=== PATIENT | female | born 1995 | race Caucasian/White ===

== ENCOUNTER → 2019-07-24 11:37 | Outpatient (BNVA) | payer OTHER, SELFPAY | PROVIDERS: Family Provider Nurse Practitioner Family; PCP Nurse Practitioner Family; Visit Provider Nurse Practitioner Family | DX: R53.83 Other fatigue (principal); R42 Dizziness and giddiness; E03.9 Hypothyroidism, unspecified; J32.9 Chronic sinusitis, unspecified | CPT/HCPCS: 80053; 81003; 82607; 83540; 83550; 84443; 85025; 86308 ==

== ENCOUNTER → 2019-07-31 11:00 | Outpatient (BNVA) | payer OTHER, SELFPAY | PROVIDERS: Family Provider Nurse Practitioner Family; PCP Nurse Practitioner Family; Visit Provider Nurse Practitioner Family | DX: E55.9 Vitamin D deficiency, unspecified (principal); D64.9 Anemia, unspecified; E53.8 Deficiency of other specified B group vitamins; Z79.899 Other long term (current) drug therapy | CPT/HCPCS: 82306; 83036 ==

== ENCOUNTER → 2019-10-08 11:18 | Outpatient (BNVA) | payer OTHER, SELFPAY | PROVIDERS: Family Provider Nurse Practitioner Family; PCP Nurse Practitioner Family; Visit Provider Nurse Practitioner Family | DX: E53.8 Deficiency of other specified B group vitamins (principal) | CPT/HCPCS: 82607 ==

== ENCOUNTER → 2019-11-26 11:41 | Outpatient (BNVA) | payer OTHER, SELFPAY | PROVIDERS: Family Provider Nurse Practitioner Family; PCP Nurse Practitioner Family; Visit Provider Nurse Practitioner Family | DX: K62.9 Disease of anus and rectum, unspecified (principal); N89.8 Other specified noninflammatory disorders of vagina | CPT/HCPCS: 81001; 84450; 87070; 87491; 87591; 87661 ==

== ENCOUNTER → 2019-12-06 11:19 | Outpatient (BNVA) | payer OTHER, SELFPAY | PROVIDERS: Family Provider Nurse Practitioner Family; PCP Nurse Practitioner Family; Visit Provider Nurse Practitioner Family | DX: Z20.2 Contact with and (suspected) exposure to infections with a predominantly sexual mode of transmission (principal) | CPT/HCPCS: 84450; 87070; 87077; 87186; 88175 ==

== ENCOUNTER → 2019-12-10 16:39 | Outpatient (BNVA) | payer OTHER, SELFPAY | PROVIDERS: Family Provider Nurse Practitioner Family; PCP Nurse Practitioner Family; Visit Provider Nurse Practitioner Family | DX: Z11.59 Encounter for screening for other viral diseases (principal) | CPT/HCPCS: 87635 ==

== ENCOUNTER → 2020-01-06 15:18 | Outpatient (BNVA) | payer OTHER, SELFPAY | PROVIDERS: Family Provider Nurse Practitioner Family; PCP Nurse Practitioner Family; Visit Provider Nurse Practitioner Family | DX: N39.0 Urinary tract infection, site not specified (principal) | CPT/HCPCS: 81000; 81003 ==

== ENCOUNTER → 2020-01-08 11:43 | Outpatient (BNVA) | payer OTHER, SELFPAY | PROVIDERS: Family Provider Nurse Practitioner Family; PCP Nurse Practitioner Family; Visit Provider Nurse Practitioner Family | DX: R68.89 Other general symptoms and signs (principal) | CPT/HCPCS: 87635 ==

== ENCOUNTER → 2020-01-16 14:44 | Outpatient (BNVA) | payer OTHER, SELFPAY | PROVIDERS: Family Provider Nurse Practitioner Family; PCP Nurse Practitioner Family; Visit Provider Nurse Practitioner Family | DX: Z20.2 Contact with and (suspected) exposure to infections with a predominantly sexual mode of transmission (principal) | CPT/HCPCS: 81025; 86592; 87491; 87591 ==

== ENCOUNTER → 2021-01-18 07:44 | Outpatient (BNVA) | payer BC, SELFPAY | PROVIDERS: Family Provider Nurse Practitioner Family; PCP Nurse Practitioner Family; Visit Provider Nurse Practitioner Family | DX: N89.8 Other specified noninflammatory disorders of vagina (principal); L60.0 Ingrowing nail; B37.3 Candidiasis of vulva and vagina | CPT/HCPCS: 87070; 87106; 87107; 87205 ==

== ENCOUNTER 2021-10-11 13:03 | Outpatient (CLI) | payer OTHER, SELFPAY ==
--- NOTE | 2021-10-11 13:17 | XRR_ITS ---
PROCEDURE INFORMATION: Exam: XR Abdomen Exam date and time: 10/11/2021 1:17 PM Age: 26 years old Clinical indication: Bloating; Abdominal pain; Localized; Lower; Prior surgery; Additional info: Lower abd pain TECHNIQUE: Imaging protocol: XR of the abdomen. Views: Frontal supine view of the abdomen. 1 View. COMPARISON: No relevant prior studies available. FINDINGS: Gastrointestinal tract: Normal. No bowel dilation. Bones/joints: Unremarkable. XR/XR abdomen 1V* [id number] IMPRESSION: No acute findings.
== END 2021-10-11 13:04 | disposition home or self-care (01) ==
PROVIDERS: Family Provider Nurse Practitioner Family; PCP Registered Nurse; Visit Provider Registered Nurse
DX: R10.30 Lower abdominal pain, unspecified (principal); R14.0 Abdominal distension (gaseous); R11.0 Nausea; R80.9 Proteinuria, unspecified
CPT/HCPCS: 74018

== ENCOUNTER 2021-11-06 16:36 | Emergency (ER) | payer OTHER, SELFPAY ==
[2021-11-06 16:51] VITALS: BP 166/122; PULSE 95; RESP 13; TEMP 37.1; O2SAT 97; BMI 50.1
--- NOTE | 2021-11-06 18:22 | XRR_ITS ---
PROCEDURE INFORMATION: Exam: XR Chest Exam date and time: 11/06/2021 6:29 PM Age: 26 years old Clinical indication: Other: Dizzy TECHNIQUE: Imaging protocol: XR of the chest. Views: 1 view. COMPARISON: CR XR abdomen 1V* [id number] 10/11/2021 1:17 PM FINDINGS: Lungs: Unremarkable. No consolidation. Pleural spaces: Unremarkable. No pleural effusion. No pneumothorax. Heart/Mediastinum: Unremarkable. No cardiomegaly. Bones/joints: Unremarkable. XR/XR chest 1V portable [id number] IMPRESSION: No acute findings.
--- NOTE | 2021-11-06 18:23 | ECG_ITS ---
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 Measurements Intervals [place] Rate: 91 P: 30 MT: 178 QRS: 68 QRSD: 86 T: 46 QT: 349 QTc: 430 Interpretive Statements SINUS RHYTHM No previous ECG available for comparison Electronically Signed On 11-07-2021 20:30:34 CDT by Jonatan Cota M.D. [email or web address]
--- NOTE | 2021-11-06 18:42 | W.ED.DIZZY ---
HPI - Dizziness General: Chief Complaint: Dizziness Stated Complaint: High Blood Pressure\Dizzy\Left Arm Tingeling Time Seen by Provider: 11/06/21 18:13 Source: patient History of Present Illness: HPI Narrative: 26-year-old female presenting with 4 days of dizziness. She takes lisinopril for hypertension. And has been taking it regularly. She does note that her blood pressures been high. She has had episodes of dizziness. She has had a dull headache at times. She had some mild vision changes. Today, she felt tingling in her left arm, which is also new. She denies any overt chest pain, but did note some discomfort in her epigastrium. No fever. She was at work today, when she felt this, and asked to have her blood pressure taken, and it was quite high. MD elicited complaint: dizziness Onset (ago): day(s) Timing: gradual onset Severity: moderate Description: sense of movement, lightheadedness and near-syncope Context: other History of similar symptoms: No Exacerbating factors: movement/ambulation Relieving factors: nothing Associated symptoms: Reports headache(s) and nausea; Denies change in hearing, chest pain, fevers/chills, short of breath or vomiting Associated neuro symptoms: Reports numbness in extremities; Deny confusion, difficulty speaking, diplopia, extremity weakness, facial numbness or facial weakness Review of Systems Const: Denies: fever(s) Eyes: Reports: change in vision; Denies: blurry vision ENMT: Denies: throat pain or change in hearing Card: Denies: chest pain Resp: Denies: dyspnea GI: Reports: abdominal pain (Mild epigastric) and nausea; Denies: vomiting Neuro: Reports: headache(s) and numbness in extremities; Denies: confusion PFS ED PFSH: Medical History Anemia Anxiety and depression Patient has history of anxiety and depression. She has failed several medications but recently placed on Paxil and is reported to be doing better. Bacterial vaginosis Encounter for control pills maintenance External hemorrhoid HPV exposure Ingrown toenail Shoulder strain Urinary tract infection Vaginal candidiasis Vaginal Discharge Vaginal infection Vitamin B 12 deficiency Vitamin D deficiency Yeast vaginitis Social History Smoking and tobacco status: never smoked Second hand smoke exposure: No Alcohol intake: never Desire information about alcohol rehabilitation?: No Counseling given: No Desire information about substance/drug rehabilitation?: No Counseling given: No Physical Exam Const: COMMON NORMALS: alert GENERAL APPEARANCE: cooperative; not frail appearing HENMT: COMMON NORMALS: normocephalic, atraumatic and Normal external nose present HEAD & SCALP: normocephalic and atraumatic FACE & SINUS: normal facial exam and face symmetric NOSE: Normal external nose present Eye: COMMON NORMALS: Equal, round and reactive pupils present and EOMs intact bilaterally PUPIL: Yes Equal, round and reactive pupils present Neck/C-Spine: COMMON NORMALS: full ROM GENERAL: Yes trachea midline Chest: CHEST: Yes Symmetrical chest wall rise Resp: COMMON NORMALS: normal respiratory effort, No use of accessory muscles and clear to auscultation bilaterally AUSCULTATION: clear to auscultation bilaterally Cardio: COMMON NORMALS: regular rate and regular rhythm RATE: regular rate RHYTHM: regular rhythm GI: COMMON NORMALS: Normal to inspection, nondistended, normoactive bowel sounds present Extremity: COMMON NORMALS: no pedal edema Neuro: TREV COMA SCALE: document GCS findings Range coma scale eye opening: Spontaneous Trev coma scale verbal response: Orientated Range coma scale motor response: Obey commands Range coma scale total score: 15 SENSORIUM/ORIENTATION: Yes alert CRANIAL NERVES: Yes CN normal except as noted COORDINATION/BALANCE: aspfei-hh-gioy test normal and duey-fi-qhzn test normal MOTOR EXAM: Pronator motor function not present and no tremor noted COORDINATION: vjetyb-xh-zoep test normal and bxms-ht-[id number] test normal Course Vital Signs: Vital signs: Vital Signs Temperature 98.8 F 11/06/21 16:51 Pulse Rate 92 11/06/21 19:50 Respiratory Rate 18 11/06/21 19:50 Blood Pressure 129/82 11/06/21 20:11 Pulse Oximetry 97 11/06/21 19:50 MDM - Dizziness Medical Decision Making Symptoms are resolved after 10 mg IV labetalol, Ativan, and 10 mg of oral amlodipine. Blood pressure currently is 136/71. Labs are normal. Head CT is normal. Chest x-ray was nonacute. No significant ST changes on EKG. She will be allowed home. We will have her check her pressures, and increase her lisinopril accordingly if her blood pressure stays high Lab Data : 11/06/21 19:10 11/06/21 19:10 Radiology Impressions Chest X-Ray 11/06/21 18:22 IMPRESSION: No acute findings. Head CT 11/06/21 18:47 IMPRESSION: No acute intracranial abnormality. Laboratory Results WBC 10.3 10^3/uL (4.0-10.0) H 11/06/21 19:10 RBC 4.57 10^6/uL (4.1-5.3) 11/06/21 19:10 Hgb 13.8 g/dL (11.5-15.3) 11/06/21 19:10 Hct 42.2 % (37.0-47.0) 11/06/21 19:10 MCV 92.3 fl (81-99) 11/06/21 19:10 MCH 30.2 pg (28.0-34.0) 11/06/21 19:10 MCHC 32.7 g/dL (30.0-36.0) 11/06/21 19:10 RDW 13.2 % (12.1-15.1) 11/06/21 19:10 Plt Count 340 10^3/cmm (130-400) 11/06/21 19:10 MPV 10.1 fL (7.4-10.4) 11/06/21 19:10 Neut % (Auto) 60.5 % 11/06/21 19:10 Lymph % (Auto) 29.0 % 11/06/21 19:10 [place] % (Auto) 8.9 % 11/06/21 19:10 Eos % (Auto) 0.9 % 11/06/21 19:10 Baso % (Auto) 0.4 % 11/06/21 19:10 Neut # (Auto) 6.24 10^3/uL (1.8-7.7) 11/06/21 19:10 Lymph # (Auto) 3.0 10^3/uL (0.8-4.8) 11/06/21 19:10 [place] # (Auto) 0.9 10^3/uL (0.2-0.9) 11/06/21 19:10 Eos # (Auto) 0.1 10^3/uL (0.0-0.8) 11/06/21 19:10 Baso # (Auto) 0.0 10^3/uL (0.0-0.1) 11/06/21 19:10 Nucleated RBC % (auto) 0 % 11/06/21 19:10 Nucleated RBCs # 0.0 /100WBC 11/06/21 19:10 Sodium 136 mmol/L (136-145) 11/06/21 19:10 Potassium 4.3 mmol/L (3.5-5.1) 11/06/21 19:10 Chloride 102 mmol/L (98-107) 11/06/21 19:10 Carbon Dioxide 24 mmol/L (22-29) 11/06/21 19:10 Anion Gap 14.3 (5-19) 11/06/21 19:10 BUN 10 mg/dL (6-20) 11/06/21 19:10 Creatinine 0.5 mg/dL (0.5-0.9) 11/06/21 19:10 GFR Calculation 151.6 mL/min (90-130) H 11/06/21 19:10 Glucose 90 mg/dL (65-115) 11/06/21 19:10 Calculated Osmolality 281 mOsm/kg (285-295) L 11/06/21 19:10 Calcium 9.7 mg/dL (8.5-10.5) 11/06/21 19:10 Total Bilirubin 0.3 mg/dL (0.15-1.2) 11/06/21 19:10 AST 12 U/L (0-32) 11/06/21 19:10 ALT 11 U/L (0-33) 11/06/21 19:10 Alkaline Phosphatase 92 IU/L (35-105) 11/06/21 19:10 Troponin T Gen 5 ng/L 6 ng/L (0-10) 11/06/21 19:10 NT-Pro-B Natriuret Pep 5 pg/mL (0-125) 11/06/21 19:10 Total Protein 7.1 g/dL (6.6-8.7) 11/06/21 19:10 Albumin 4.2 g/dL (3.5-5.2) 11/06/21 19:10 Globulin 2.9 g/dL (1.3-4.6) 11/06/21 19:10 HCG, Qual Negative (Negative) 11/06/21 19:45 Urine Color Yellow (Yellow) 11/06/21 19:50 Urine Appearance Clear (CLEAR) 11/06/21 19:50 Urine pH 6 (5-7) 11/06/21 19:50 Ur Specific [place] 1.015 (1.005-1.030) 11/06/21 19:50 Urine Protein Neg (Negative) 11/06/21 19:50 Urine Glucose (UA) Norm (Normal) 11/06/21 19:50 Urine Ketones Negative (Negative) 11/06/21 19:50 Urine Blood Neg (Negative) 11/06/21 19:50 Urine Nitrate Negative (Negative) 11/06/21 19:50 Urine Bilirubin Neg (Negative) 11/06/21 19:50 Urine Urobilinogen Norm mg/dL (Negative) 11/06/21 19:50 Ur Leukocyte Esterase Negative (Negative) 11/06/21 19:50 Discharge Plan Discharge Patient Disposition: Home Clinical Impression: Hypertension Condition: Stable Prescriptions: New lisinopril 20 mg tablet 20 mg PO DAILY Qty: 30 0RF No Action ibuprofen 800 mg tablet 800 mg PO Q8H PRN (Reason: headache) 30 Days Qty: 90 1RF lidocaine HCl [Xylocaine] 10 mg/mL (1 %) solution 1 ml IM ONCE Qty: 1 0RF paroxetine HCl 20 mg tablet 40 mg .ROUTE .COMPLEX 0RF Rx Instructions: 40 mg; metformin 500 mg tablet extended release 24hr 1,000 mg PO BID 0RF fluticasone propionate 50 mcg/actuation spray,suspension 1 spray intranasal DAILY 0RF Rx Instructions: administer into each nostril imiquimod 2.5 % cream in metered-dose pump 1 pump topical DAILY 0RF pantoprazole 40 mg tablet,delayed release (DR/EC) 40 mg PO DAILY 0RF sulfamethoxazole-trimethoprim [Bactrim DS] 800-160 mg tablet 1 tab PO BID 7 Days Qty: 14 0RF norgestimate-ethinyl estradiol [Sprintec (28)] 0.25-35 mg-mcg tablet See Rx Instructions .ROUTE .COMPLEX Qty: 28 0RF Dose Instruction: Take 1 tablet by mouth once daily for 30 days Rx Instructions: Take 1 tablet by mouth once daily for 30 days fluconazole [Diflucan] 150 mg tablet 150 mg PO DAILY 5 Days Qty: 5 0RF paroxetine HCl 10 mg tablet See Rx Instructions .ROUTE .COMPLEX Qty: 30 2RF Dose Instruction: TAKE 1 TABLET BY MOUTH ONCE DAILY WITH 40MG FOR 50MG DAILY DOSING. Rx Instructions: TAKE 1 TABLET BY MOUTH ONCE DAILY WITH 40MG FOR 50MG DAILY DOSING. levothyroxine [Euthyrox] 25 mcg tablet See Rx Instructions .ROUTE .COMPLEX Qty: 30 0RF Dose Instruction: Take 1 tablet by mouth once daily Rx Instructions: Take 1 tablet by mouth once daily Pt needs appointment before additional refills are given. Discharge Orders: Discharge ED (Routine); Ordered 11/06/21 Ordered By: Misbah Vigil Referrals: Kristi Shore [Primary Care Provider] - 4-7 days Discharge Diet: Advance as tolerated Discharge Activity: Increase activity as tolerated Patient Instructions: Hypertension (ED) Activity Restrictions/Additional Instructions: Check your blood pressures twice daily. If your systolic (the top number) stays above 150, take 2 of your 10 mg lisinopril pills daily instead of 1. If you are having to do this consistently, you may fill the 20 mg lisinopril prescription and increase her dosage consistently. Return for worsening headache, vision, mental status, weakness, or any chest discomfort. Coding Level of Care Code ED Oncology Radiation Physician for Vicente Fwjose antonio Exam Comprehensive
--- NOTE | 2021-11-06 18:47 | CTR_ITS ---
PROCEDURE INFORMATION: Exam: CT Head Without Contrast Exam date and time: 11/06/2021 6:59 PM Age: 26 years old Clinical indication: Dizziness; Patient HX: High blood pressure TECHNIQUE: Imaging protocol: Computed tomography of the head without contrast. Radiation optimization: All CT scans at this facility use at least one of these dose optimization techniques: automated exposure control; mA and/or kV adjustment per patient size (includes targeted exams where dose is matched to clinical indication); or iterative reconstruction. COMPARISON: No relevant prior studies available. RADIATION DOSE METRICS: Total DLP (mGy-cm): 820.06 FINDINGS: Brain: Normal. No hemorrhage. Unremarkable white matter. No mass effect. Cerebral ventricles: No ventriculomegaly. Paranasal sinuses: Visualized sinuses are unremarkable. No fluid levels. Mastoid air cells: Visualized mastoid air cells are well aerated. Bones/joints: Unremarkable. No acute fracture. Soft tissues: Unremarkable. CT/CT head wo con* [id number] IMPRESSION: No acute intracranial abnormality.
[2021-11-06 19:00] VITALS: BP 161/120; PULSE 99; RESP 18; O2SAT 98
[2021-11-06] MEDS: amlodipine 10 mg Tablet PO (19:15)
[2021-11-06] MEDS: LORazepam 2 mg/mL INJ 1 mL 1 MG IVP (19:16)
[2021-11-06 19:17] LABS: Basophils % 0.4 %; Eosinophils # 0.1 10^3/uL (0.0-0.8); Eosinophils % 0.9 %; Hematocrit 42.2 % (37.0-47.0); Hemoglobin 13.8 g/dL (11.5-15.3); Mean Corpuscular HGB Conc 32.7 g/dL (30.0-36.0); Mean Corpuscular Hemoglobin 30.2 pg (28.0-34.0); Mean Corpuscular Volume 92.3 fl (81-99); Mean Platelet Volume 10.1 fL (7.4-10.4); Monocytes # 0.9 10^3/uL (0.2-0.9); Monocytes % 8.9 %; Neutrophils # 6.24 10^3/uL (1.8-7.7); Neutrophils % 60.5 %; Nucleated Red Blood Cells % 0 %; Platelet Count 340 10^3/cmm (130-400); Red Blood Count 4.57 10^6/uL (4.1-5.3); Red Cell Distribution Width 13.2 % (12.1-15.1); White Blood Count 10.3 10^3/uL (4.0-10.0)
[2021-11-06] MEDS: labetalol 5 mg/mL SDV 20mL 10 MG IVP (19:18)
[2021-11-06 19:35] LABS: Troponin T (5th) Once 6 ng/L (0-10)
[2021-11-06 19:43] LABS: Alanine Aminotransferase 11 U/L (0-33); Albumin Level 4.2 g/dL (3.5-5.2); Alkaline Phosphatase 92 IU/L (35-105); Anion Gap 14.3 (5-19); Aspartate Amino Transferase 12 U/L (0-32); Blood Urea Nitrogen 10 mg/dL (6-20); Calcium 9.7 mg/dL (8.5-10.5); Carbon Dioxide 24 mmol/L (22-29); Chloride 102 mmol/L (98-107); Globulin 2.9 g/dL (1.3-4.6); Glomerular Filtration Rate 151.6 mL/min (90-130); Glucose 90 mg/dL (65-115); NT Pro B Type Natriuretic Pept 5 pg/mL (0-125); Osmolality Calculated 281 mOsm/kg (285-295); Potassium 4.3 mmol/L (3.5-5.1); Sodium 136 mmol/L (136-145); Total Bilirubin 0.3 mg/dL (0.15-1.2); Total Protein 7.1 g/dL (6.6-8.7)
[2021-11-06 19:50] VITALS: BP 161/83; PULSE 92; RESP 18; O2SAT 97
[2021-11-06 19:56] LABS: Add Urine Microscopic? NO; Charge for UA Resulting for Rev
[2021-11-06 20:02] LABS: Bilirubin Urine Neg (Negative); Blood Urine Neg (Negative); Glucose Urine UA Norm (Normal); Ketones Urine Negative (Negative); Leukocyte Esterase Urine Negative (Negative); Nitrate Urine Negative (Negative); Protein Urine Neg (Negative); Specific Gravity, Urine 1.015 (1.005-1.030); Urine Appearance Clear (CLEAR); Urine Color Yellow (Yellow); Urobilinogen Urine Norm (Negative); pH Urine 6 (5-7)
[2021-11-06 20:05] LABS: HCG, Serum Qual Negative (Negative)
[2021-11-06 20:11] VITALS: BP 129/82
[2021-11-06 21:12] VITALS: BP 120/92; PULSE 96; RESP 18; O2SAT 98
== END 2021-11-06 20:37 | disposition home or self-care (01) ==
PROVIDERS: Emergency Provider Emergency Medicine; PCP Registered Nurse
DX: I10 Essential (primary) hypertension (principal); R42 Dizziness and giddiness; R51.9 Headache, unspecified
CPT/HCPCS: 70450; 71045; 80053; 81003; 83880; 84484; 84703; 85025; 93005; 96374; 96375; 99284; J2060; J3490

== ENCOUNTER 2021-12-24 15:06 | Outpatient (CLI) | payer OTHER, SELFPAY ==
[2021-12-24 16:22] LABS: 25 Hydroxy Vitamin D 37 ng/mL (30-100); Vitamin B12 250 pg/mL (232-1245)
== END 2021-12-24 15:07 | disposition home or self-care (01) ==
LOC: LAB 15:15
PROVIDERS: PCP Registered Nurse; Visit Provider Nurse Practitioner Family
DX: R53.83 Other fatigue (principal); E55.9 Vitamin D deficiency, unspecified
CPT/HCPCS: 36415; 82306; 82607

== ENCOUNTER → 2022-01-05 14:50 | Outpatient (BNVA) | payer OTHER, SELFPAY | PROVIDERS: PCP Registered Nurse; Visit Provider Nurse Practitioner Family | DX: R31.9 Hematuria, unspecified (principal) | CPT/HCPCS: 81003 ==

== ENCOUNTER → 2022-01-13 10:29 | Outpatient (BNVA) | payer OTHER, SELFPAY | PROVIDERS: PCP Registered Nurse; Visit Provider Nurse Practitioner Family | DX: R30.0 Dysuria (principal) | CPT/HCPCS: 81003; 87086 ==

== ENCOUNTER 2022-01-25 13:00 | Outpatient (CLI) | payer OTHER, SELFPAY | END 2022-01-25 13:01 | disposition home or self-care (01) | LOC: SLEEP 01-27 08:00 | PROVIDERS: PCP Registered Nurse; Visit Provider Internal Medicine Critical Care Medicine | DX: G47.10 Hypersomnia, unspecified (principal) | CPT/HCPCS: G0399 ==

== ENCOUNTER 2022-03-22 11:23 | Outpatient (CLI) | payer OTHER, SELFPAY ==
[2022-03-22 13:05] LABS: 25 Hydroxy Vitamin D 32 ng/mL (30-100); Alanine Aminotransferase 11 U/L (0-33); Albumin Level 3.6 g/dL (3.5-5.2); Alkaline Phosphatase 85 U/L (35-105); Aspartate Amino Transferase 15 U/L (0-32); Blood Urea Nitrogen 10 mg/dL (6-20); C Reactive Protein 25.3 mg/L (0.0-4.9); Calcium 9.3 mg/dL (8.5-10.5); Carbon Dioxide 24 mmol/L (22-29); Chloride 104 mmol/L (98-107); Chol HDL Ratio 5.09 mg/dL (0.0-4.40); Cholesterol 219 mg/dL (0-200); Globulin 2.9 g/dL (1.3-4.6); Glomerular Filtration Rate 151.6 mL/min (90-130); Glucose 90 mg/dL (65-115); HDL Cholesterol 43 mg/dL (60-100); LDL Cholesterol Calculated 147 mg/dL (50-129); LDL HDL Ratio 3.42 RATIO (0.00-3.22); Osmolality Calculated 287 mOsm/kg (285-295); Sodium 139 mmol/L (136-145); Thyroid Stimulating Hormone 1.58 uIU/mL (0.27-4.20); Total Bilirubin 0.2 mg/dL (0.15-1.2); Total Protein 6.5 g/dL (6.6-8.7); Triglycerides 147 mg/dL (0-150)
[2022-03-22 13:08] LABS: Basophils % 0.4 %; Eosinophils # 0.1 10^3/uL (0.0-0.8); Eosinophils % 0.9 %; Hematocrit 39.2 % (37.0-47.0); Hemoglobin 12.8 g/dL (11.5-15.3); Lymphocytes # 2.3 10^3/uL (0.8-4.8); Lymphocytes % 29.2 %; Mean Corpuscular HGB Conc 32.7 g/dL (30.0-36.0); Mean Corpuscular Hemoglobin 30.3 pg (28.0-34.0); Mean Corpuscular Volume 92.7 fl (81-99); Mean Platelet Volume 10.4 fL (7.4-10.4); Monocytes # 0.5 10^3/uL (0.2-0.9); Monocytes % 6.3 %; Neutrophils # 4.92 10^3/uL (1.8-7.7); Neutrophils % 62.8 %; Nucleated Red Blood Cells % 0 %; Platelet Count 306 10^3/cmm (130-400); Red Blood Count 4.23 10^6/uL (4.1-5.3); Red Cell Distribution Width 12.5 % (12.1-15.1); White Blood Count 7.8 10^3/uL (4.0-10.0)
[2022-03-22 13:13] LABS: Anion Gap 15.1 (5-19); Potassium 4.1 mmol/L (3.5-5.1)
--- NOTE | 2022-03-22 14:14 | XRR_ITS ---
PROCEDURE INFORMATION: Exam: XR Right Hip Exam date and time: 03/22/2022 2:14 PM Age: 26 years old Clinical indication: Hip pain; Right hip; Additional info: Right hip pain TECHNIQUE: Imaging protocol: Radiologic exam of the Right hip. Views: 1 view hip with pelvis when performed. COMPARISON: CR XR abdomen 1V* [id number] 10/11/2021 1:17 PM FINDINGS: Bones/joints: The visualized pelvis is grossly intact. The hip joint maintains normal alignment. No proximal femoral fracture identified. Soft tissues: Unremarkable. XR/XR hip RT 2-3V wo/w pel* [id number] IMPRESSION: No fracture identified.
[2022-03-22 14:38] LABS: Estmated Average Glucose 94; Hemoglobin A1C 4.9 % (4.0-6.0)
[2022-03-22 16:42] LABS: Free T4 Free Thyroxine 0.93 ng/dL (0.82-1.77)
[2022-03-23 15:08] LABS: Thyroglobulin AB <1 IU/mL (< or = 1)
[2022-03-29 12:13] LABS: T3 Total 179 ng/dL (76-181)
[2022-03-31 14:27] LABS: Thyroglobulin Level 8.7 ng/mL
== END 2022-03-22 11:24 | disposition home or self-care (01) ==
PROVIDERS: PCP Registered Nurse; Visit Provider Registered Nurse
DX: M25.551 Pain in right hip (principal); E11.9 Type 2 diabetes mellitus without complications; I10 Essential (primary) hypertension; M79.10 Myalgia, unspecified site; E03.4 Atrophy of thyroid (acquired); E55.9 Vitamin D deficiency, unspecified
CPT/HCPCS: 36415; 73502; 80053; 80061; 82306; 83036; 84432; 84439; 84443; 84480; 85025; 86140; 86431; 86800

== ENCOUNTER 2022-06-02 08:25 | Outpatient (CLI) | payer OTHER, SELFPAY ==
[2022-06-02 09:17] LABS: Total Volume Urine 2056 ml
[2022-06-02 09:24] LABS: Urine Creatinine 122 mg/dL (28-217)
[2022-06-09 15:14] LABS: Free Cortisol Urine 19.1 mcg/24 h (4.0-50.0); Total Urine 1225 mL; Urine Creatinine 1.35 g/24 h (0.50-2.15)
== END 2022-06-02 08:26 | disposition home or self-care (01) ==
LOC: LAB 08:29
PROVIDERS: PCP Nurse Practitioner Family; Visit Provider Internal Medicine
DX: E03.9 Hypothyroidism, unspecified (principal); R63.5 Abnormal weight gain
CPT/HCPCS: 82530; 82570

== ENCOUNTER → 2022-07-18 11:20 | Outpatient (BNVA) | payer OTHER, SELFPAY | PROVIDERS: PCP Family Medicine; Visit Provider Internal Medicine | DX: Z20.2 Contact with and (suspected) exposure to infections with a predominantly sexual mode of transmission (principal); F32.A Depression, unspecified; E55.9 Vitamin D deficiency, unspecified; D64.9 Anemia, unspecified; L40.9 Psoriasis, unspecified; S46.911A Strain of unspecified muscle, fascia and tendon at shoulder and upper arm level, right arm, initial encounter; X58.XXXA Exposure to other specified factors, initial encounter | CPT/HCPCS: 36415; 72202; 73120; 80053; 81003; 82306; 82550; 82607; 82728; 83540; 85025; 85651; 86140; 86160; 86162; 86200; 86235; 86255; 86376; 86704; 86803; 87340 ==

== ENCOUNTER → 2022-07-26 08:04 | Outpatient (BNVA) | payer OTHER, SELFPAY | PROVIDERS: PCP Family Medicine; Visit Provider Podiatrist Foot & Ankle Surgery | DX: M72.2 Plantar fascial fibromatosis (principal) | CPT/HCPCS: 73630 ==

== ENCOUNTER 2022-07-26 08:35 | Outpatient (CLI) | payer OTHER, SELFPAY ==
[2022-07-26 10:18] LABS: Anion Gap 16.3 (5-19); Blood Urea Nitrogen 11 mg/dL (6-20); Calcium 8.9 mg/dL (8.5-10.5); Carbon Dioxide 21 mmol/L (22-29); Chloride 103 mmol/L (98-107); Free T4 Free Thyroxine 1.05 ng/dL (0.82-1.77); Glomerular Filtration Rate 151.6 mL/min (90-130); Glucose 94 mg/dL (65-115); Osmolality Calculated 281 mOsm/kg (285-295); Potassium 4.3 mmol/L (3.5-5.1); Sodium 136 mmol/L (136-145); Thyroid Stimulating Hormone 2.25 uIU/mL (0.27-4.20)
[2022-07-26 11:24] LABS: Estmated Average Glucose 91; Hemoglobin A1C 4.8 % (4.0-6.0)
[2022-07-27 11:34] LABS: Insulin ( Reference Lab Test) 17.5 uIU/mL
[2022-08-01 15:54] LABS: Thyroid Peroxidase Antobodies 1 IU/mL (<9)
== END 2022-07-26 08:36 | disposition home or self-care (01) ==
LOC: LAB 08:39
PROVIDERS: PCP Family Medicine; Visit Provider Internal Medicine
DX: E03.9 Hypothyroidism, unspecified (principal); R63.5 Abnormal weight gain; E88.81 Metabolic syndrome and other insulin resistance
CPT/HCPCS: 36415; 80048; 83036; 83525; 84439; 84443; 86376

== ENCOUNTER → 2023-02-14 18:52 | Outpatient (BNVA) | payer OTHER, SELFPAY | DX: R39.9 Unspecified symptoms and signs involving the genitourinary system (principal) | CPT/HCPCS: 81000 ==

== ENCOUNTER → 2023-02-20 14:13 | Outpatient (BNVA) | payer OTHER, SELFPAY | PROVIDERS: PCP Family Medicine; Visit Provider Internal Medicine | DX: E03.9 Hypothyroidism, unspecified (principal); R63.5 Abnormal weight gain; E55.9 Vitamin D deficiency, unspecified | CPT/HCPCS: 36415; 84439; 84443 ==

== ENCOUNTER 2023-04-17 15:13 | Inpatient (IN) | payer OTHER, MEDICAID, SELFPAY ==
[2023-04-17 15:19] VITALS: BP 161/101; PULSE 99; RESP 16; TEMP 36.5; O2SAT 98; BMI 48.2
--- NOTE | 2023-04-17 15:32 | W.ED.PSYCHS ---
HPI - Psych General: Chief Complaint: Psychiatric Symptoms Stated Complaint: SI Time Seen by Provider: 04/17/23 15:21 Source: patient Mode of arrival: ambulatory Limitations: no limitations History of Present Illness: 27-year-old female who states she has been having increasing depression along with suicidal thoughts with a plan of overdosing on pills. States she had a friend who attempted overdose 2 weeks ago and its caused her to have these worsening thoughts. She states that she feels like she needs to be admitted to get help where she is scared she is going to harm herself. Associated symptoms: Reports depression and suicidal ideation Review of Systems Const: Denies: fever(s), chills, body aches or change in appetite ENMT: Denies: throat pain or dental pain Card: Denies: chest pain Resp: Denies: dyspnea GI: Denies: abdominal pain, nausea, vomiting or diarrhea : Denies: dysuria Musc: Denies: neck pain or back pain Skin/Breast: Denies: rash Neuro: Denies: headache(s) Psych: Reports: depression and suicidal ideation PFS ED PFSH: Medical History Anemia Anxiety and depression Patient has history of anxiety and depression. She has failed several medications but recently placed on Paxil and is reported to be doing better. Bacterial vaginosis Encounter for control pills maintenance External hemorrhoid HPV exposure Ingrown toenail Other reactions to severe stress Other reactions to severe stress Psychiatric care Shoulder strain Urinary tract infection Vaginal candidiasis Vaginal Discharge Vaginal infection Vitamin B 12 deficiency Vitamin D deficiency Yeast vaginitis Surgical History History of esophagogastroduodenoscopy History of placement of ear tubes History of tonsillectomy and adenoidectomy History of wisdom tooth extraction Family History Mother Hypertension Anxiety Endometrial cyst of ovary History of spleen injury History of kidney removal History of cholecystectomy Arthritis Father Pre-diabetes History of kidney stones Anxiety High cholesterol Arthritis Social History Smoking and tobacco/nicotine status: never used tobacco/nicotine Second hand smoke exposure: No Alcohol intake: never Substance/Drug Use: never Lives independently: Yes Marital status: Single Current occupational status: employed Current occupation: [employer] Physical Exam Const: COMMON NORMALS: no acute distress, patient oriented x3 and healthy appearing HENMT: COMMON NORMALS: normocephalic and atraumatic HEAD & SCALP: normocephalic and atraumatic Eye: COMMON NORMALS: conjunctivae normal CONJUNCTIVA: Yes conjunctivae normal Neck/C-Spine: COMMON NORMALS: full ROM and supple Chest: COMMONS NORMALS: normal inspection of the chest Resp: COMMON NORMALS: normal respiratory effort Cardio: COMMON NORMALS: regular rate, regular rhythm and No murmurs present (Cardio) RATE: regular rate RHYTHM: regular rhythm Extremity: COMMON NORMALS: normal to inspection and full ROM Neuro: COMMON NORMALS: patient oriented x3, moves all extremities and no focal motor deficits Psych: COMMON NORMALS: mental status grossly normal, Normal thought process present and cooperative MOOD & AFFECT: Yes depressed mood THOUGHT PROCESS: Normal thought process present THOUGHT CONTENT: Yes Suicidality present Skin: COMMON NORMALS: no rashes or lesions noted and no wounds GENERAL SKIN EXAM: no rashes or lesions noted Course Vital Signs: Vital signs: Vital Signs Temperature 97.7 F 04/17/23 15:19 Pulse Rate 99 04/17/23 15:19 Respiratory Rate 16 04/17/23 15:19 Blood Pressure 161/101 04/17/23 15:19 Pulse Oximetry 98 04/17/23 15:19 Oxygen Delivery Me thod Room Air 04/17/23 15:19 [facility] - Psych Medical Decision Making Patient presents here with suicidal ideations she is medically cleared spoke to psychiatrist and will admit to the psych lara at this time. Medical Records I reviewed the patient's medical records. Lab Data I reviewed the patient's lab results. 04/17/23 15:38 04/17/23 15:38 Laboratory Results WBC 10.16 10^3/uL (3.29-11.43) 04/17/23 15:38 RBC 4.68 10^6/uL (3.85-5.65) 04/17/23 15:38 Hgb 13.50 g/dL (11.27-16.99) 04/17/23 15:38 Hct 41.3 % (36-47) 04/17/23 15:38 MCV 88.2 fl (85-98) 04/17/23 15:38 MCH 28.8 pg (27-33) 04/17/23 15:38 MCHC 32.7 g/dL (30-55) 04/17/23 15:38 RDW 14.0 % (12.1-15.1) 04/17/23 15:38 Plt Count 302 10^3/cmm (157-399) 04/17/23 15:38 MPV 10.0 fL (7.4-10.4) 04/17/23 15:38 Neut % (Auto) 66.7 % 04/17/23 15:38 Lymph % (Auto) 25.3 % 04/17/23 15:38 [place] % (Auto) 6.9 % 04/17/23 15:38 Eos % (Auto) 0.5 % 04/17/23 15:38 Baso % (Auto) 0.3 % 04/17/23 15:38 Neut # (Auto) 6.78 10^3/uL (1.8-7.7) 04/17/23 15:38 Lymph # (Auto) 2.6 10^3/uL (0.8-4.8) 04/17/23 15:38 [place] # (Auto) 0.7 10^3/uL (0.2-0.9) 04/17/23 15:38 Eos # (Auto) 0.1 10^3/uL (0.0-0.8) 04/17/23 15:38 Baso # (Auto) 0.0 10^3/uL (0.0-0.1) 04/17/23 15:38 Nucleated RBC % (auto) 0 % 04/17/23 15:38 Nucleated RBCs # 0.0 /100WBC 04/17/23 15:38 Sodium 141 mmol/L (136-145) 04/17/23 15:38 Potassium 4.0 mmol/L (3.5-5.1) 04/17/23 15:38 Chloride 105 mmol/L (98-107) 04/17/23 15:38 Carbon Dioxide 24 mmol/L (22-29) 04/17/23 15:38 Anion Gap 16.0 (5-19) 04/17/23 15:38 BUN 8 mg/dL (6-20) 04/17/23 15:38 Creatinine 0.7 mg/dL (0.5-0.9) 04/17/23 15:38 GFR Calculation 102.0 mL/min (90-130) 04/17/23 15:38 Glucose 97 mg/dL (65-115) 04/17/23 15:38 Calculated Osmolality 290 mOsm/kg (285-295) 04/17/23 15:38 Calcium 9.5 mg/dL (8.5-10.5) 04/17/23 15:38 Total Bilirubin 0.2 mg/dL (0.15-1.2) 04/17/23 15:38 AST 13 U/L (0-32) 04/17/23 15:38 ALT 13 U/L (0-33) 04/17/23 15:38 Alkaline Phosphatase 87 U/L (35-105) 04/17/23 15:38 Total Protein 6.8 g/dL (6.6-8.7) 04/17/23 15:38 Albumin 4.1 g/dL (3.5-5.2) 04/17/23 15:38 Globulin 2.7 g/dL (1.3-4.6) 04/17/23 15:38 Salicylates < 0.3 mg/dL (3-10) L 04/17/23 15:38 Acetaminophen < 5.0 ug/mL (10-30) L 04/17/23 15:38 Ethyl Alcohol < 10 mg/dL (0-10) 04/17/23 15:38 No radiology studies performed this visit Discharge Plan Discharge Admit Provider: Leonard Solorio Clinical Impression: Suicidal ideation Condition: Stable Coding Level of Care Code ED Bolt Threader for Vicente Wade
[2023-04-17 15:47] LABS: Basophils % 0.3 %; Eosinophils # 0.1 10^3/uL (0.0-0.8); Eosinophils % 0.5 %; Hematocrit 41.3 % (36-47); Lymphocytes # 2.6 10^3/uL (0.8-4.8); Lymphocytes % 25.3 %; Mean Corpuscular HGB Conc 32.7 g/dL (30-55); Mean Corpuscular Hemoglobin 28.8 pg (27-33); Mean Corpuscular Volume 88.2 fl (85-98); Monocytes # 0.7 10^3/uL (0.2-0.9); Monocytes % 6.9 %; Neutrophils # 6.78 10^3/uL (1.8-7.7); Neutrophils % 66.7 %; Nucleated Red Blood Cells % 0 %; Platelet Count 302 10^3/cmm (157-399); Red Blood Count 4.68 10^6/uL (3.85-5.65); White Blood Count 10.16 10^3/uL (3.29-11.43)
[2023-04-17 16:14] LABS: Alanine Aminotransferase 13 U/L (0-33); Albumin Level 4.1 g/dL (3.5-5.2); Alkaline Phosphatase 87 U/L (35-105); Aspartate Amino Transferase 13 U/L (0-32); Blood Urea Nitrogen 8 mg/dL (6-20); Calcium 9.5 mg/dL (8.5-10.5); Carbon Dioxide 24 mmol/L (22-29); Chloride 105 mmol/L (98-107); Globulin 2.7 g/dL (1.3-4.6); Glucose 97 mg/dL (65-115); Osmolality Calculated 290 mOsm/kg (285-295); Sodium 141 mmol/L (136-145); Total Bilirubin 0.2 mg/dL (0.15-1.2); Total Protein 6.8 g/dL (6.6-8.7)
[2023-04-17 16:15] LABS: Acetaminophen < 5.0 ug/mL (10-30); Alcohol Level < 10 mg/dL (0-10); Salicylate < 0.3 mg/dL (3-10)
--- NOTE | 2023-04-17 16:36 | PC.NURSE ---
Reviewed 96 hr rights with patient with assistance of ZAKIA Burnette fire control officer @[phone]. All questions answered, and no concerns or needs verbalized by patient at this time. Patient copy left @ bedside with patient.
[2023-04-17 16:45] VITALS: BP 137/85
[2023-04-17 17:08] VITALS: BP 147/94; PULSE 103; RESP 18; TEMP 36.8; O2SAT 98
[2023-04-17 17:30] LABS: HCG Qualitative Urine. Negative (Negative)
[2023-04-17 18:19] LABS: Amphetamines Screen Urine Negative (Negative); Barbiturates Screen Urine Negative (Negative); Benzodiazepines Screen Urine Positive (Negative); Cocaine Screen Urine Negative (Negative); Opiate Screen Urine Negative (Negative); PCP Screen Urine Negative (Negative); THC Screen Urine Negative (Negative)
[2023-04-17 20:21] VITALS: BP 111/75; PULSE 91; RESP 18; TEMP 36.9; O2SAT 95
[2023-04-17] MEDS: quetiapine 25 mg Tablet 50 MG PO (21:02)
[2023-04-18 06:00] VITALS: BP 111/74; PULSE 76; RESP 16; TEMP 36.4; O2SAT 98
[2023-04-18] MEDS: levothyroxine 50 mcg Tablet PO (06:27)
[2023-04-18] MEDS: pantoprazole DR 40 mg Tablet PO (06:27)
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
[2023-04-18] MEDS: PARoxetine 20 mg Tablet 60 MG PO (08:52)
[2023-04-18] MEDS: lisinopril 10 mg Tablet PO (08:53)
[2023-04-18 13:46] VITALS: BP 119/72; PULSE 103; RESP 18; TEMP 36.6; O2SAT 99
[2023-04-18 20:05] VITALS: BP 106/69; PULSE 87; RESP 18; TEMP 36.3; O2SAT 97
[2023-04-18] MEDS: quetiapine 25 mg Tablet 50 MG PO (20:36)
[2023-04-19 06:00] VITALS: BP 107/68; PULSE 80; RESP 16; TEMP 36.2; O2SAT 97
[2023-04-19] MEDS: levothyroxine 50 mcg Tablet PO (06:16)
[2023-04-19] MEDS: pantoprazole DR 40 mg Tablet PO (06:17)
[2023-04-19] MEDS: PARoxetine 20 mg Tablet 60 MG PO (10:00)
[2023-04-19] MEDS: buPROPion XL (24 HR) 150 mg Tablet PO (10:00)
[2023-04-19] MEDS: lisinopril 10 mg Tablet PO (10:00)
--- NOTE | 2023-04-19 10:37 | PC.NURSE ---
Denies avh and si/hi this morning. She says she hasn't had any thoughts of harming herself since she has been admitted to the unit. She does say she woke up feeling a bit depressed because she is starting to miss her family. Patient says she has a lot of family support and is close with them. Support voiced and patient did get a snack this morning as she did sleep through breakfast.
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
[2023-04-19 14:00] VITALS: BP 137/83; PULSE 82; RESP 15; O2SAT 94
[2023-04-19] MEDS: quetiapine 25 mg Tablet 50 MG PO (20:21)
[2023-04-19 21:23] VITALS: BP 109/66; PULSE 76; RESP 17; TEMP 36.7; O2SAT 96
[2023-04-20] MEDS: levothyroxine 50 mcg Tablet PO (05:45)
[2023-04-20 06:00] VITALS: BP 98/65; PULSE 77; RESP 15; TEMP 36.7; O2SAT 97
[2023-04-20] MEDS: buPROPion XL (24 HR) 150 mg Tablet PO (08:53)
[2023-04-20] MEDS: PARoxetine 20 mg Tablet 60 MG PO (08:53)
[2023-04-20] MEDS: lisinopril 10 mg Tablet PO (08:54)
[2023-04-20] MEDS: pantoprazole DR 40 mg Tablet PO (08:54)
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
--- NOTE | 2023-04-20 09:00 | PC.NURSE ---
During morning assessment, patient reported low anxiety, 2/10, stating that low anxiety is normal for me . Patient denies SI, HI, AVH, and depression.
[2023-04-20 09:22] VITALS: BP 98/65; PULSE 77; RESP 15; TEMP 36.7; O2SAT 97
== END 2023-04-20 11:21 | disposition home or self-care (01) | DRG 882 ==
LOC: ER 15:33 → NP 16:17
PROVIDERS: Admitting Provider Psychiatry & Neurology Psychiatry; Emergency Provider Emergency Medicine; PCP Family Medicine; Visit Provider Psychiatry & Neurology Psychiatry
DX: F43.10 Post-traumatic stress disorder, unspecified (principal); R45.851 Suicidal ideations; F33.9 Major depressive disorder, recurrent, unspecified; F41.9 Anxiety disorder, unspecified; I10 Essential (primary) hypertension; E06.3 Autoimmune thyroiditis; Z81.8 Family history of other mental and behavioral disorders; Z62.812 Personal history of neglect in childhood; Z62.810 Personal history of physical and sexual abuse in childhood; Z91.414 Personal history of adult intimate partner abuse; F17.290 Nicotine dependence, other tobacco product, uncomplicated
CPT/HCPCS: 36415; 80053; 80306; 80307; 81025; 85025; 97150; 97165; 99285

== ENCOUNTER 2023-07-17 17:06 | Outpatient (CLI) | payer MEDICAID, SELFPAY ==
[2023-07-17 21:10] LABS: Free T4 Free Thyroxine 1.16 ng/dL (0.82-1.77); Thyroid Stimulating Hormone 3.96 uIU/mL (0.27-4.20)
== END 2023-07-17 17:07 | disposition home or self-care (01) ==
LOC: LAB 17:06
PROVIDERS: PCP Family Medicine; Visit Provider Internal Medicine
DX: E03.9 Hypothyroidism, unspecified (principal)
CPT/HCPCS: 84439; 84443

== ENCOUNTER → 2023-09-06 08:27 | Outpatient (BNVA) | payer MEDICAID, SELFPAY | PROVIDERS: PCP Family Medicine; Visit Provider Internal Medicine | DX: E03.9 Hypothyroidism, unspecified (principal); R63.5 Abnormal weight gain; E55.9 Vitamin D deficiency, unspecified; Z79.890 Hormone replacement therapy; Z68.42 Body mass index [BMI] 45.0-49.9, adult | CPT/HCPCS: 99214 ==

== ENCOUNTER 2023-11-20 12:13 | Outpatient (CLI) | payer MEDICAID, SELFPAY | END 2023-11-20 12:14 | disposition home or self-care (01) | LOC: LAB 12:17 | PROVIDERS: PCP Nurse Practitioner Family; Visit Provider Internal Medicine | DX: E03.9 Hypothyroidism, unspecified (principal); R63.5 Abnormal weight gain; E55.9 Vitamin D deficiency, unspecified | CPT/HCPCS: 82306; 84439; 84443 ==

== ENCOUNTER 2024-05-20 11:15 | Emergency (ER) | payer MEDICAID, SELFPAY ==
--- NOTE | 2024-05-20 11:16 | US_ITS ---
WS: [id number] EARLY OBSTETRICAL ULTRASOUND (<14 WEEKS). HISTORY: vag bleeding COMPARISON: None available. Single intrauterine gestational sac is identified. Sac appears appropriate position. Mean sac diamete r of 1.2 cm corresponds to a gestation of 6 weeks and 0 days. There is a normal-appearing yolk sac. N o crown-rump length is definitely identified or heart rate. There is an area of increased soft tissue thickening adjacent to the yolk sac which is probably the developing crown-rump length. No sig nificant amount of subchorionic hemorrhage. The cervix is closed. No free fluid. Small corpus luteum associated with the RIGHT ovary. Both ovaries are normal size. US/US OB <=14 wk fetus w transvag IMPRESSION: 1. Single gestational sac with mean diameter age of 6w0d with an EDC of 2024. Based on the gestational sac measurements embryonic age is 6 weeks 0 days . At this time typically a heart rate and crown-rump length are identifie d. Recommend follow-up transvaginal ultrasound in 1 week. 2. Normal yolk sac. 3. Intact gestational sac.
[2024-05-20 11:21] VITALS: BP 143/99; PULSE 81; RESP 15; O2SAT 98; BMI 48.3
--- NOTE | 2024-05-20 12:24 | W.ED.PREGNAN ---
HPI - General: Chief complaint: Vaginal Bleeding Stated complaint: cramping,spotting,6 weeks Time Seen by Provider: 05/20/24 11:59 History of Present Illness: 28-year-old female presents emergency room with complaints of vaginal bleeding she only noticed after she wiped. She has not had any discharge dysuria frequency has not had no bleeding or required wearing a pad. She has recently discovered that she is . No abdominal pain or cramping. Associated symptoms: Deny abdominal pain or dysuria Related Data Home Medications Medication Instructions Recorded Confirmed pantoprazole 40 mg tablet,delayed 40 mg PO DAILY 01/18/21 05/20/24 release fluticasone propionate 50 2 spray intranasal DAILY PRN 04/17/23 05/20/24 mcg/actuation nasal Allergic Symptoms spray,suspension lisinopril 10 mg tablet 10 mg PO QAM 04/17/23 05/20/24 norgestimate 0.25 mg-ethinyl 1 tab PO DAILY 04/17/23 05/20/24 estradiol 35 mcg tablet (Sprintec (28)) quetiapine 50 mg tablet 50 mg PO BEDTIME 04/17/23 05/20/24 Previous Rx's Medication Instructions Recorded ibuprofen 800 mg tablet 800 mg PO Q8H PRN headache 30 days 10/03/19 #90 tabs lorazepam 0.5 mg tablet 0.5 mg PO DAILY PRN anxiety 30 01/10/23 days #30 tabs paroxetine HCl 40 mg tablet 60 mg (1.5 x 40 mg) PO DAILY 30 01/10/23 days #45 tabs bupropion HCl 150 mg 24 hr tablet, 150 mg PO DAILY 30 days #30 tabs 04/20/23 extended release amoxicillin 875 mg-potassium 1 tab PO BID 10 days #20 tabs 05/03/23 clavulanate 125 mg tablet benzonatate 100 mg capsule 100 mg PO BID cough 15 days #30 05/09/23 caps nirmatrelvir 300 mg (150 mg See Rx Instructions PO .COMPLEX 05/09/23 x2)-ritonavir 100 mg tablet,dose #30 ea pack (Paxlovid) ultbdlou-mjhgammhm-ijoqpbklq 3.5 4 drp otic (ear) Q8H #10 mL 05/12/23 mg-10,000 unit/mL-1 % ear drops,susp pseudoephedrine HCl 30 mg tablet 30 mg PO Q6H PRN nasal congestion 05/12/23 (Sudafed) 10 days #30 tabs naproxen 500 mg tablet 500 mg PO BID #60 tabs 05/19/23 levothyroxine 50 mcg tablet 50 mcg PO DAILY #90 tabs 09/13/23 Allergies Allergy/AdvReac Type Severity Reaction Status Date / Time No Known Allergies Allergy Verified 05/20/24 07:54 Review of Systems Const: Denies: fever(s) or chills Card: Denies: chest pain Resp: Denies: dyspnea GI: Denies: abdominal pain : Denies: dysuria, urinary frequency or urinary urgency Musc: Denies: neck pain or back pain Skin/Breast: Denies: rash PFSH ED PFSH: Medical History Otitis media COVID Acute bacterial sinusitis Other reactions to severe stress Other reactions to severe stress Psychiatric care Yeast vaginitis Ingrown toenail Vaginal Discharge Urinary tract infection Shoulder strain Vaginal candidiasis Bacterial vaginosis Vaginal infection HPV exposure External hemorrhoid Encounter for control pills maintenance Anemia Vitamin D deficiency Vitamin B 12 deficiency Anxiety and depression Patient has history of anxiety and depression. She has failed several medications but recently placed on Paxil and is reported to be doing better. Surgical History History of placement of ear tubes History of tonsillectomy and adenoidectomy History of wisdom tooth extraction History of esophagogastroduodenoscopy Family History Mother Hypertension Anxiety Endometrial cyst of ovary History of spleen injury History of kidney removal History of cholecystectomy Arthritis Father Pre-diabetes History of kidney stones Anxiety High cholesterol Arthritis Social History Smoking and tobacco/nicotine status: never used tobacco/nicotine Second hand smoke exposure: No Alcohol intake: never Substance/Drug Use: never Lives independently: Yes Marital status: Single Current occupational status: employed Current occupation: [employer] Physical Exam Const: GENERAL APPEARANCE: cooperative ORIENTATION/CONSCIOUSNESS: Yes awake, Yes oriented to person, Yes oriented to place and Yes oriented to time HENMT: COMMON NORMALS: normocephalic, atraumatic and hearing grossly normal bilaterally HEAD & SCALP: normocephalic and atraumatic Resp: COMMON NORMALS: normal respiratory effort, No retractions, No use of accessory muscles and clear to auscultation bilaterally AUSCULTATION: clear to auscultation bilaterally Cardio: COMMON NORMALS: regular rate, regular rhythm and No murmurs present (Cardio) RATE: regular rate RHYTHM: regular rhythm GI: COMMON NORMALS: Soft to palpation and No hepatosplenomegaly present AUSCULTATION: Yes normoactive bowel sounds PALPATION: Yes Soft to palpation, No Tenderness to palpation present (GI), No Guarding due to palpation present (GI) and Yes No hepatosplenomegaly present Extremity: COMMON NORMALS: normal to inspection, capillary refill normal, no clubbing, cyanosis or edema, no calf tenderness and no pedal edema Neuro: SENSORIUM/ORIENTATION: Yes oriented to person, Yes oriented to place and Yes oriented to time Skin: COMMON NORMALS: no rashes or lesions noted GENERAL SKIN EXAM: no rashes or lesions noted Course Vital Signs: Vital signs: Vital Signs Pulse Rate 77 05/20/24 13:54 Respiratory Rate 15 05/20/24 11:21 Blood Pressure 137/96 05/20/24 13:54 Pulse Oximetry 99 05/20/24 13:54 Oxygen Delivery Me thod Room Air 05/20/24 12:47 MDM - OB/Uterine Contractions Medical Decision Making Beta-hCG 15,500. Ultrasound shows gestational sac with 6-week pole. heart rate noted. No evidence of subchorionic hemorrhage at this time. Discussed with patient she will need to follow-up with her doctor within the next 3 to 4 days to have a repeat beta-hCG and will likely need a repeat ultrasound in the next week or 2. Return if she has further bleeding Medical Records I reviewed the patient's medical records. Lab Data I reviewed the patient's lab results. 05/20/24 12:26 Radiology Impressions Obstetrics Ultrasound 05/20/24 11:16 IMPRESSION: 1. Single gestational sac with mean diameter age of 6w0d with an EDC of 01/13/2025. Based on the gestational sac measurements embryonic age is 6 weeks 0 days. At this time typically a heart rate and crown-rump length are identified. Recommend follow-up transvaginal ultrasound in 1 week. 2. Normal yolk sac. 3. Intact gestational sac. Laboratory Results WBC 7.98 10^3/uL (3.29-11.43) 05/20/24 12:26 RBC 4.40 10^6/uL (3.85-5.65) 05/20/24 12:26 Hgb 13.10 g/dL (11.27-16.99) 05/20/24 12:26 Hct 39.3 % (36-47) 05/20/24 12:26 MCV 89.3 fl (85-98) 05/20/24 12:26 MCH 29.8 pg (27-33) 05/20/24 12:26 MCHC 33.3 g/dL (30-55) 05/20/24 12:26 RDW 13.8 % (12.1-15.1) 05/20/24 12:26 Plt Count 287 10^3/cmm (157-399) 05/20/24 12:26 MPV 10.0 fL (7.4-10.4) 05/20/24 12:26 Neut % (Auto) 65.9 % 05/20/24 12:26 Lymph % (Auto) 25.1 % 05/20/24 12:26 [place] % (Auto) 7.5 % 05/20/24 12:26 Eos % (Auto) 0.9 % 05/20/24 12:26 Baso % (Auto) 0.3 % 05/20/24 12:26 Neut # (Auto) 5.27 10^3/uL (1.8-7.7) 05/20/24 12:26 Lymph # (Auto) 2.0 10^3/uL (0.8-4.8) 05/20/24 12:26 [place] # (Auto) 0.6 10^3/uL (0.2-0.9) 05/20/24 12:26 Eos # (Auto) 0.1 10^3/uL (0.0-0.8) 05/20/24 12:26 Baso # (Auto) 0.0 10^3/uL (0.0-0.1) 05/20/24 12:26 Nucleated RBC % (auto) 0 % 05/20/24 12:26 Nucleated RBCs # 0.0 /100WBC 05/20/24 12:26 Ser , Semi-Qnt 10132.00 mIU/mL 05/20/24 12:26 Urine Color Dark yellow (Yellow) A 05/20/24 12:45 Urine Appearance Clear (CLEAR) 05/20/24 12:45 Urine pH 6.0 (5-7) 05/20/24 12:45 Ur Specific [place] 1.031 (1.005-1.030) H 05/20/24 12:45 Urine Protein Trace (Negative) A 05/20/24 12:45 Urine Glucose (UA) Negative (Normal) 05/20/24 12:45 Urine Ketones Trace (Negative) 05/20/24 12:45 Urine Blood Non-haemolysed trace (Negative) 05/20/24 12:45 Urine Nitrate Negative (Negative) 05/20/24 12:45 Urine Bilirubin 1+ (Negative) H 05/20/24 12:45 Urine Urobilinogen 1.0 mg/dL (Negative) 05/20/24 12:45 Ur Leukocyte Esterase Trace (Negative) A 05/20/24 12:45 Urine RBC 0-4 /hpf (0-2) H 05/20/24 12:45 Urine WBC 0-4 /hpf (0-5) H 05/20/24 12:45 Ur Squamous Epith Cells 0-4 /hpf (0-5) H 05/20/24 12:45 Amorphous Sediment Not Reportable 05/20/24 12:45 Urine Bacteria 1+ /hpf (NONE) H 05/20/24 12:45 Blood Type B Positive 05/20/24 12:26 Rho(D) Type Rh positive 05/20/24 12:26 Antibody Screen Negative 05/20/24 12:26 All radiology interpretation(s) finalized by discharge Discharge Plan Discharge Patient Disposition: Home Clinical Impression: First trimester bleeding Condition: Stable Prescriptions: No Action ibuprofen 800 mg tablet 800 mg PO Q8H PRN (Reason: headache) 30 Days Qty: 90 1RF pantoprazole 40 mg tablet,delayed release (DR/EC) 40 mg PO DAILY paroxetine HCl 40 mg tablet 60 mg PO DAILY 30 Days Qty: 45 3RF lorazepam 0.5 mg tablet 0.5 mg PO DAILY PRN (Reason: anxiety) 30 Days Qty: 30 3RF amoxicillin-pot clavulanate 875-125 mg tablet 1 tab PO BID 10 Days Qty: 20 0RF benzonatate 100 mg capsule 100 mg PO BID 15 Days Qty: 30 0RF Rx Instructions: Do not bite or chew Paxlovid 300 mg (150 mg x 2)-100 mg tablets,dose pack See Rx Instructions PO .COMPLEX Qty: 30 0RF Rx Instructions: take TWO 150 mg tablets of nirmatrelvir with ONE 100 mg tablet of ritonavir twice daily for 5 days PO pseudoephedrine HCl [Sudafed] 30 mg tablet 30 mg PO Q6H PRN (Reason: nasal congestion) 10 Days Qty: 30 0RF ponxlwrv-ldrrkwizw-GE 3.5-10,000-1 mg/mL-unit/mL-% drops,suspension 4 drp otic (ear) Q8H Qty: 10 0RF naproxen 500 mg tablet 500 mg PO BID Qty: 60 0RF Rx Instructions: Ibuprofen will be on hold by patient. levothyroxine 50 mcg tablet 50 mcg PO DAILY Qty: 90 1RF lisinopril 10 mg tablet 10 mg PO QAM fluticasone propionate 50 mcg/actuation spray,suspension 2 spray INTRANASAL DAILY PRN (Reason: Allergic Symptoms) quetiapine 50 mg tablet 50 mg PO BEDTIME Sprintec (28) 0.25-35 mg-mcg tablet 1 tab PO DAILY bupropion HCl 150 mg Tablet Extended Release 24 Hr 150 mg PO DAILY 30 Days Qty: 30 1RF Discharge Orders: Discharge ED (Routine); Ordered 05/20/24 Ordered By: Jesse Rodríguez Referrals: Maryellen Reardon [Primary Care Provider] - Discharge Diet: Usual diet Discharge Activity: Resume usual activity Patient Instructions: Opioid Safety, Pain Management Activity Restrictions/Additional Instructions: Thank you for choosing [facility] for your healthcare needs today. It is very important that you follow up as instructed or that you return to the Emergency Department should you have concerns or if your condition changes or worsens in any way. You are seen in the emergency room with a complaint of light vaginal bleeding. Ultrasound confirms intrauterine . heart tones and fetus appearance are appeared normal. Your beta-hCG is consistent with gestational age. Recommend you follow-up with your primary care doctor there is no sign of bladder infection. Return if you have further problems. Coding Level of Care Code ED Manager Student Services for Vicente Wade
[2024-05-20 12:47] VITALS: PULSE 80; O2SAT 97
[2024-05-20 12:52] LABS: Basophils % 0.3 %; Eosinophils # 0.1 10^3/uL (0.0-0.8); Eosinophils % 0.9 %; Hematocrit 39.3 % (36-47); Lymphocytes % 25.1 %; Mean Corpuscular HGB Conc 33.3 g/dL (30-55); Mean Corpuscular Hemoglobin 29.8 pg (27-33); Mean Corpuscular Volume 89.3 fl (85-98); Monocytes # 0.6 10^3/uL (0.2-0.9); Monocytes % 7.5 %; Neutrophils # 5.27 10^3/uL (1.8-7.7); Neutrophils % 65.9 %; Nucleated Red Blood Cells % 0 %; Platelet Count 287 10^3/cmm (157-399); Red Cell Distribution Width 13.8 % (12.1-15.1); White Blood Count 7.98 10^3/uL (3.29-11.43)
[2024-05-20 13:17] LABS: Bilirubin Urine 1+ (Negative); Blood Urine Non-haemolysed trace (Negative); Glucose Urine UA Negative (Normal); Ketones Urine Trace (Negative); Leukocyte Esterase Urine Trace (Negative); Nitrate Urine Negative (Negative); Protein Urine Trace (Negative); Urine Appearance Clear (CLEAR); Urine Color Dark Yellow (Yellow)
[2024-05-20 13:33] LABS: Specific Gravity, Urine 1.031 (1.005-1.030); UA Slide Review UA Slide Review Perf
[2024-05-20 13:34] LABS: Add Urine Microscopic? YES; Bacteria Urine 1+ /hpf; RBC Urine 0-4 /hpf (0-2); Squamous Epithelial Cell Urine 0-4 /hpf (0-5); UA Manual Slide Review YES; WBC Urine 0-4 /hpf (0-5)
[2024-05-20 13:54] VITALS: BP 137/96; PULSE 77; O2SAT 99
== END 2024-05-20 14:04 | disposition home or self-care (01) ==
PROVIDERS: Emergency Medicine; Emergency Provider Family Medicine; PCP Nurse Practitioner Family
DX: O46.91 Antepartum hemorrhage, unspecified, first trimester (principal); Z3A.01 Less than 8 weeks gestation of pregnancy
CPT/HCPCS: 36415; 76801; 76817; 81001; 84702; 85025; 86850; 86900; 99284

== ENCOUNTER → 2024-05-30 10:42 | Outpatient (BNVA) | payer MEDICAID, SELFPAY | PROVIDERS: PCP Nurse Practitioner Family; Visit Provider Nurse Practitioner Women's Health | DX: Z34.90 Encounter for supervision of normal pregnancy, unspecified, unspecified trimester (principal) | CPT/HCPCS: 76801 ==

== ENCOUNTER → 2024-06-25 09:16 | Outpatient (BNVA) | payer MEDICAID, SELFPAY | PROVIDERS: PCP Nurse Practitioner Family; Visit Provider Nurse Practitioner Women's Health | DX: Z34.90 Encounter for supervision of normal pregnancy, unspecified, unspecified trimester (principal) | CPT/HCPCS: 80307; 82950; 83036; 84315; 84439; 84443; 84481; 85025; 86592; 86762; 86803; 87086; 87340; 87491; 87591; 87661; 87806 ==

== ENCOUNTER → 2024-07-08 11:39 | Outpatient (BNVA) | payer MEDICAID, SELFPAY | PROVIDERS: PCP Nurse Practitioner Family; Visit Provider Obstetrics & Gynecology | DX: Z34.90 Encounter for supervision of normal pregnancy, unspecified, unspecified trimester (principal) | CPT/HCPCS: 76801; 84315 ==

== ENCOUNTER → 2024-07-24 12:59 | Outpatient (BNVA) | payer MEDICAID, SELFPAY | PROVIDERS: PCP Nurse Practitioner Family; Visit Provider Obstetrics & Gynecology | DX: O16.9 Unspecified maternal hypertension, unspecified trimester (principal) | CPT/HCPCS: 81000 ==

== ENCOUNTER 2024-07-29 08:11 | Outpatient (CLI) | payer MEDICAID, SELFPAY ==
[2024-07-29 08:55] LABS: Urine Total Protein 7.4 mg/dL (0-150)
[2024-07-29 09:00] LABS: Total Volume, Urine 1100 mL; Urine Total Protein 24 Hour 81.4 mg/24hr (0-150)
== END 2024-07-29 08:12 | disposition home or self-care (01) ==
LOC: LAB 08:16
PROVIDERS: Nurse Practitioner Women's Health; PCP Nurse Practitioner Family; Referring Provider Obstetrics & Gynecology; Visit Provider Obstetrics & Gynecology
DX: E11.9 Type 2 diabetes mellitus without complications (principal); Z34.90 Encounter for supervision of normal pregnancy, unspecified, unspecified trimester; R42 Dizziness and giddiness
CPT/HCPCS: 80053; 82105; 84156; 84315; 85025

== ENCOUNTER → 2024-08-19 09:33 | Outpatient (BNVA) | payer MEDICAID, SELFPAY | PROVIDERS: PCP Nurse Practitioner Family; Visit Provider Obstetrics & Gynecology | DX: Z34.82 Encounter for supervision of other normal pregnancy, second trimester (principal) | CPT/HCPCS: 76805 ==

== ENCOUNTER → 2024-08-26 09:26 | Outpatient (BNVA) | payer MEDICAID, SELFPAY | PROVIDERS: PCP Nurse Practitioner Family; Visit Provider Obstetrics & Gynecology | DX: Z34.90 Encounter for supervision of normal pregnancy, unspecified, unspecified trimester (principal) | CPT/HCPCS: 84315 ==

== ENCOUNTER 2024-08-27 10:42 | Outpatient (CLI) | payer MEDICAID, SELFPAY ==
[2024-08-27 10:42] VITALS: BMI 46.5
[2024-08-27 10:56] VITALS: BP 139/75; PULSE 82
[2024-08-27 11:11] VITALS: BP 133/72; PULSE 75
== END 2024-08-27 11:25 | disposition home or self-care (01) ==
LOC: OPOB 10:43 → OBGYN 10:45
PROVIDERS: PCP Nurse Practitioner Family; Visit Provider Obstetrics & Gynecology
DX: O36.8190 Decreased fetal movements, unspecified trimester, not applicable or unspecified (principal); Z3A.00 Weeks of gestation of pregnancy not specified
CPT/HCPCS: 99211

== ENCOUNTER → 2024-09-02 10:28 | Outpatient (BNVA) | payer MEDICAID, SELFPAY | PROVIDERS: PCP Nurse Practitioner Family; Visit Provider Internal Medicine | DX: Z34.90 Encounter for supervision of normal pregnancy, unspecified, unspecified trimester (principal); E66.01 Morbid (severe) obesity due to excess calories; E55.9 Vitamin D deficiency, unspecified; R63.5 Abnormal weight gain; E06.3 Autoimmune thyroiditis | CPT/HCPCS: 36415; 82306; 84439; 84443 ==

== ENCOUNTER → 2024-09-16 13:40 | Outpatient (BNVA) | payer MEDICAID, SELFPAY | PROVIDERS: PCP Nurse Practitioner Family; Visit Provider Obstetrics & Gynecology | DX: O10.912 Unspecified pre-existing hypertension complicating pregnancy, second trimester (principal); Z3A.23 23 weeks gestation of pregnancy | CPT/HCPCS: 76816 ==

== ENCOUNTER → 2024-09-26 13:21 | Outpatient (BNVA) | payer MEDICAID, SELFPAY | PROVIDERS: PCP Nurse Practitioner Family; Visit Provider Nurse Practitioner Women's Health | DX: Z34.92 Encounter for supervision of normal pregnancy, unspecified, second trimester (principal) | CPT/HCPCS: 84315 ==

== ENCOUNTER → 2024-10-21 09:05 | Outpatient (BNVA) | payer MEDICAID, SELFPAY | PROVIDERS: PCP Nurse Practitioner Family; Visit Provider Obstetrics & Gynecology | DX: Z34.90 Encounter for supervision of normal pregnancy, unspecified, unspecified trimester (principal) | CPT/HCPCS: 82950; 84315; 85025 ==

== ENCOUNTER → 2024-11-05 13:52 | Outpatient (BNVA) | payer MEDICAID, SELFPAY | PROVIDERS: PCP Nurse Practitioner Family; Visit Provider Nurse Practitioner Women's Health | DX: Z34.90 Encounter for supervision of normal pregnancy, unspecified, unspecified trimester (principal); O26.859 Spotting complicating pregnancy, unspecified trimester; R39.9 Unspecified symptoms and signs involving the genitourinary system | CPT/HCPCS: 81000; 87086 ==

== ENCOUNTER 2024-11-13 19:51 | Outpatient (CLI) | payer MEDICAID, SELFPAY ==
[2024-11-13] VITALS (14 sets, daily range): BP systolic 144–208; BP diastolic 77–118; PULSE 86–113; TEMP 35.5; BMI 49.5
[2024-11-13 20:44] LABS: Bilirubin Urine Negative (Negative); Blood Urine 1+ (Negative); Glucose Urine UA Negative (Normal); Ketones Urine 3+ (Negative); Leukocyte Esterase Urine 1+ (Negative); Nitrate Urine Negative (Negative); Protein Urine Trace (Negative); Specific Gravity, Urine 1.024 (1.005-1.030); Urine Appearance Cloudy (CLEAR); Urine Color Dark Yellow (Yellow)
[2024-11-13 20:46] LABS: Add Urine Microscopic? YES; Bacteria Urine Trace /hpf; Squamous Epithelial Cell Urine 0-5 /hpf (0-5)
[2024-11-13] MEDS: NIFEdipine 10 mg Capsule 30 MG PO (20:48)
[2024-11-13 20:58] LABS: Add Urine Culture? Yes
[2024-11-13] MEDS: labetalol 200 mg Tablet 100 MG PO (22:32)
[2024-11-13 23:45] LABS: Basophils % 0.3 %; Eosinophils # 0.1 10^3/uL (0.0-0.8); Eosinophils % 0.5 %; Hematocrit 34.9 % (36-47); Lymphocytes # 3.1 10^3/uL (0.8-4.8); Lymphocytes % 20.6 %; Mean Corpuscular HGB Conc 33.8 g/dL (30-55); Mean Corpuscular Hemoglobin 30.6 pg (27-33); Mean Corpuscular Volume 90.4 fl (85-98); Mean Platelet Volume 9.8 fL (7.4-10.4); Monocytes # 1.2 10^3/uL (0.2-0.9); Monocytes % 7.9 %; Neutrophils # 10.57 10^3/uL (1.8-7.7); Neutrophils % 69.3 %; Nucleated Red Blood Cells % 0 %; Platelet Count 252 10^3/cmm (157-399); Red Blood Count 3.86 10^6/uL (3.85-5.65); Red Cell Distribution Width 13.9 % (12.1-15.1); White Blood Count 15.24 10^3/uL (3.29-11.43)
[2024-11-13] MEDS: magnesium sulfate premix 4 GM/100 ML PREMIX IV (23:57)
[2024-11-13] MEDS: dextrose 5%-lactated ringers 1,000 ML 125 ML IV (23:58)
[2024-11-13] MEDS: labetalol 5 mg/mL SDV 20mL 20 MG IVP (23:58)
[2024-11-13] MEDS: betamethasone susp 6 mg/mL 5 mL 12 MG IM (23:59)
[2024-11-14 00:01] VITALS: BP 120/65; PULSE 81
[2024-11-14 00:01] LABS: Alanine Aminotransferase 16 U/L (0-33); Albumin Level 3.4 g/dL (3.5-5.2); Alkaline Phosphatase 124 U/L (35-105); Anion Gap 16.3 (5-19); Aspartate Amino Transferase 15 U/L (0-32); Blood Urea Nitrogen 5 mg/dL (6-20); Calcium 8.8 mg/dL (8.5-10.5); Carbon Dioxide 20 mmol/L (22-29); Chloride 101 mmol/L (98-107); Globulin 2.9 g/dL (1.3-4.6); Glomerular Filtration Rate 191.5 mL/min (90-130); Glucose 80 mg/dL (65-115); Osmolality Calculated 274 mOsm/kg (285-295); Potassium 3.3 mmol/L (3.5-5.1); Sodium 134 mmol/L (136-145); Total Bilirubin 0.3 mg/dL (0.15-1.2); Total Protein 6.3 g/dL (6.6-8.7); Uric Acid 5.4 mg/dL (2.4-5.7)
[2024-11-14 00:03] LABS: Urine Creatinine 176 mg/dL (28-217); Urine Protein Random 18 mg/dL
[2024-11-14 00:15] VITALS: BP 129/66; PULSE 78
[2024-11-14 00:30] VITALS: BP 128/66; PULSE 80
[2024-11-14 00:45] VITALS: BP 129/70; PULSE 80
--- NOTE | 2024-11-14 01:00 | PC.NURSE ---
EMS at bedside to transport patient
--- NOTE | 2024-11-14 01:50 | PM.OBGYHP ---
Providers/Chief Complaint Admitting Physician: Jordon Dawson MD Primary PHOTO MASK PROCESSOR: Jordon Dawson MD Primary Care Provider: Maryellen Reardon Chief Complaint: elevated blood pressure HPI PHOTO MASK PROCESSOR History of Present Illness Gila Broussard is a 29 year old female G1 EDC January 13, 2025 At 31 w 3 d + movements Was diagnosed with essential hypertension prior to , presently on Procardia and baby asa patient has been checking her own BPs at home BPs have been normal until today Presents to L&D c/o elevated BPs at home since 5 pm on November 13, 2024 + headache, swelling No abdominal pain, vaginal bleeding, fluid leakage Present Details : 1 Para: 0 Medications/Allergies Home Medications ?Medication ?Instructions ?Recorded ?Confirmed ?Last Taken ?Type bupropion HCl 150 mg 24 hr tablet, 150 mg PO DAILY 30 days #30 tabs 04/20/23 10/21/24 Unknown Rx extended release omeprazole 40 mg capsule,delayed 40 mg PO DAILY 06/25/24 10/21/24 Unknown History release ondansetron 4 mg disintegrating 4 mg PO Q8H 06/25/24 10/21/24 Unknown History tablet aspirin 81 mg chewable tablet 81 mg PO DAILY 07/29/24 10/21/24 Unknown History ujqxidjjne-omtwmwcrkcwin-pcljioez 1 cap PO Q8H PRN pain #30 caps 07/29/24 10/21/24 Unknown Rx 50 mg-300 mg-40 mg capsule (Fioricet) nifedipine 30 mg tablet,extended 30 mg PO DAILY #30 tabs 07/29/24 10/21/24 Unknown Rx release 24 hr (Procardia XL) sertraline 50 mg tablet 50 mg PO DAILY 08/26/24 10/21/24 Unknown History vits no.126-ferrous fum 1 tab PO DAILY #60 tabs 10/14/24 10/21/24 Unknown Rx 28 mg iron-folic acid 800 mcg tablet (Classic ) levothyroxine 50 mcg tablet See Rx Instructions .Route 10/23/24 Unknown Rx .COMPLEX #90 tabs nitrofurantoin 100 mg PO BID 7 days #14 caps 11/05/24 Unknown Rx monohydrate/macrocrystals 100 mg capsule (Macrobid) Allergies Allergy/AdvReac Type Severity Reaction Status Date / Time lisinopril Allergy ALGY-Rash Verified 10/21/24 09:13 PFS PHOTO MASK PROCESSOR PFS: Medical History High blood pressure High cholesterol Sleep apnea Thyroid disease Otitis media COVID Acute bacterial sinusitis Other reactions to severe stress Other reactions to severe stress Yeast vaginitis Ingrown toenail Vaginal Discharge Urinary tract infection Shoulder strain Vaginal candidiasis Bacterial vaginosis Vaginal infection HPV exposure External hemorrhoid Encounter for control pills maintenance Anemia Vitamin B 12 deficiency Anxiety and depression Patient has history of anxiety and depression. She has failed several medications but recently placed on Paxil and is reported to be doing better. D/c'd paxil due to . Now currently on Prozac and Buspar Surgical History History of placement of ear tubes History of tonsillectomy and adenoidectomy History of wisdom tooth extraction History of esophagogastroduodenoscopy Family History Mother Hypertension Anxiety Endometrial cyst of ovary History of spleen injury History of kidney removal History of cholecystectomy Arthritis Father Pre-diabetes History of kidney stones Anxiety High cholesterol Arthritis Social History Smoking and tobacco/nicotine status: never used tobacco/nicotine Second hand smoke exposure: No Alcohol intake: never Substance/Drug Use: never Lives independently: Yes Marital status: Single Current occupational status: employed Current occupation: [employer] History History History 1 Term 0 0 Miscarriages/Ectopic 0 Living Children 0 Care YAO Calculator Estimated Delivery Date Method Current WG Current Estimate 01/13/25 Ultrasound #1 31w 3d Specific Issues/Plans OBESITY: BMI 47.1%, early 1 hr gct 06/25/24 WNL DIABETES TYPE II: Managed by Dr. Teague, hx of Hga1c 8.2 and improved to 4.9 on 03/24/22 after use of ozempic and metformin, early 1hr gct 06/25/24 WNL, hgba1c 4.8 on 06/25/24 HYPERLIPIDEMA HASHIMOTOS DISEASE: managed by Dr. Teague, TSH on 06/25/24 0.97, takes 50 mcg of levothyroxine daily CHRONIC HYPERTENSION: d/c labetalol on 07/29, started on procardia XL 30 mg daily, instructed to start BP log and send in weekly. BPs much better with procardia as of 09/26/24. ANXIETY: switched to zoloft, working much better NAUSEA: currently takes zofran 4 mg prn HEADACHES: tylenol not effective per patient, fioricet sent to take as needed MARGINAL PLACENTA PREVIA: 08/19/2024-- Placenta: Unremarkable. No subchorionic bleed. Placenta is posterior. Marginal placenta previa. 09/16/2024-- Placenta: Posterior. Marginal previa. Vitals/I&O/Wt Last Vital Signs Temp 95.9 F L 11/13/24 20:06 Pulse 80 11/14/24 00:45 BP 129/70 11/14/24 00:45 Weight last 48 hrs Weight 262 lb Physical Exam Narrative: Weight 260 lbs; 5?1?; BMI 46 BPs 159 / 85; 199 / 106; 204 / 98; 208 / 90 General comfortable, awake, alert Lungs: clear Cor: RRR Abd: soft, nontender Ext: 2+ ankle and pretibial edema External monitor: heart tracing good variability, + accelerations Urinary Catheter Management: [place]: Cath Placed During This Visit: yes Urinary Catheter Date of Insertion: 11/13/24 Urinary Catheter Time of Insertion: 23:45 Data 11/13/24 23:37 11/13/24 23:37 Results Labs OB ([facility]): Obstetrics US 09/16/24 Blood Type B Positive 05/20/24 Antibody Screen Negative 05/20/24 Hct, (36-47) 34.9 % L 11/13/24 Hgb, (11.27-16.99) 11.80 g/dL 11/13/24 Rho(D) Type Rh positive 05/20/24 Plt Count, (157-399) 252 10^3/cmm 11/13/24 Hep Bs Antigen, (Nonreactive) Non-reactive 06/25/24 Hepatitis C Antibody, (Nonreactive) Non-reactive 06/25/24 Rubella IgG Antibody, (0.0-10.0) 213.4 IU/mL H 06/25/24 RPR, (Nonreactive) Nonreactive 06/25/24 HIV 1&2 Ab & HIV 1 Ag, (Non-Reactiv) Non-reactive 06/25/24 TSH, (0.27-4.20) 1.60 uIU/mL 09/02/24 Free T4, (0.82-1.77) 0.92 ng/dL 09/02/24 Glucose 1 Hr 50 gm, (85-140) 138 mg/dL 10/21/24 Hemoglobin A1c, (4.0-6.0) 4.8 % 06/25/24 Uric Acid, (2.4-5.7) 5.4 mg/dL 11/13/24 Ser , Semi-Qnt 97465.00 mIU/mL 05/20/24 HCG, Qual, (Negative) Negative 04/17/23 Urine Opiates Screen, (Negative) Negative ng/mL 06/25/24 Ur Barbiturates Screen, (Negative) Negative ng/mL 06/25/24 Ur Phencyclidine Scrn, (Negative) Negative ng/mL 06/25/24 Ur Amphetamines Screen, (Negative) Negative ng/mL 06/25/24 U Benzodiazepines Scrn, (Negative) Positive ng/mL H 06/25/24 Urine Cocaine Screen, (Negative) Negative ng/mL 06/25/24 U Marijuana (THC) Screen, (Negative) Negative ng/mL 06/25/24 Micro Urine Specimen 11/13/24 A&P Assessment and plan (1) : 31 w 3 d (2) High blood pressure: Significant acute elevations in BP, with headache and swelling Likely pre-eclampsia with severe features Procardia 30 mg XL PO Labetolol 100 mg po Start MgSO4, 4 gm loading dose IV, then 2 Gms / h may require other anti-hypertension medications Draw [facility] labs UA for protein [place] 12 mg IM Consider transfer to [facility] facility for delivery PDMP PDMP Reviewed: Not Reviewed Attestations Medical Necessity Statement*: patient at 31 w 2 d, with acute hypertension Coding Level of Care Code Acute Code for Chg Fwd Diagnoses , unspecified gestational age Z34.90 Weeks of gestation: unspecified High blood pressure I10
== END 2024-11-14 01:11 | disposition intermediate care facility (04) ==
LOC: OPOB 19:52 → OBGYN 19:53
PROVIDERS: PCP Nurse Practitioner Family; Visit Provider Obstetrics & Gynecology
DX: O13.9 Gestational [pregnancy-induced] hypertension without significant proteinuria, unspecified trimester (principal); Z3A.00 Weeks of gestation of pregnancy not specified
CPT/HCPCS: 80053; 81001; 82570; 84156; 84550; 85025; 87086; 96372; J0702; J3475; J3490; J7121; J9999